=== PATIENT | male | born 1980 | race Caucasian/White ===

== ENCOUNTER 2023-10-09 16:58 | Emergency (ER) | payer SELFPAY ==
[2023-10-09] MEDS ORDERED: Acetaminophen/HYDROcodone 325-5 MG Tab PO ONE (16:59)
[2023-10-09] MEDS: Acetaminophen/HYDROcodone 325-5 MG Tab PO ONE (17:56)
[2023-10-09] MEDS: Amoxicillin/Clavulanate K 500-125 MG Tab PO ONE (18:01)
[2023-10-09] MEDS: Amoxicillin 500 MG Cap PO ONE (18:01)
== END 2023-10-09 18:33 | disposition home or self-care (01) ==
LOC: FB.ED 16:58
DX: K04.7 Periapical abscess without sinus (principal); K02.9 Dental caries, unspecified; F17.200 Nicotine dependence, unspecified, uncomplicated; Z79.899 Other long term (current) drug therapy
CPT/HCPCS: 99282; 99283; A9270-GY